=== PATIENT | male | born 1975 | race Caucasian/White ===

== ENCOUNTER 2018-02-21 10:22 | Emergency (ER) | payer OTHER ==
[2018-02-21 10:40] VITALS: BP 153/103
--- NOTE | 2018-02-21 11:19 | UC ---
Truncal Trauma HPI - HPI Summary HPI Summary: fell on a table that tipped over 10 days ago. Pain on right ribcage preventing him from running/exercse. Denies pain with deep inspiration. Pain is 6/10 alleviated partially with ibuprofen. Hurts a lot when sneezing - History Of Current Complaint Chief Complaint: UCBackPain Stated Complaint: RIB PAIN Time Seen by Provider: 02/21/18 11:05 Hx Obtained From: Patient Onset/Duration: Sudden Onset, Lasting Days Onset Of Pain: Immediate Severity Initially: Moderate Severity Currently: Moderate Pain Intensity: 6 Mechanism Of Injury: Blunt Trauma, Fall From Height Of: - 4 feet Aggravating Factor(s): Cough Alleviating factor(s): OTC Medication Associated Signs And Symptoms: Positive: Negative - Allergies/Home Medications Allergies/Adverse Reactions: Allergies Allergy/AdvReac Type Severity Reaction Status Date / Time No Known Allergies Allergy Verified 01/02/16 18:56 Home Medications: Home Medications Omeprazole CAP* [Prilosec CAP* 20 MG] 1 tab PO DAILY 02/21/18 [History Confirmed 02/21/18] PMH/Surg Hx/FS Hx/Imm Hx Previously Healthy: Yes Cardiovascular History: Hypertension - Surgical History Surgical History: Yes Surgery Procedure, Year, and Place: Right thumb Surgery - Social History Alcohol Use: Occasionally Alcohol Amount: 3 beers a week Substance Use Type: None Smoking Status (MU): Never Smoked Tobacco - Immunization History Most Recent Tetanus Shot: UTD Review of Systems Constitutional: Negative Musculoskeletal: Arthralgia, Myalgia All Other Systems Reviewed And Are Negative: Yes Physical Exam Triage Information Reviewed: Yes Appearance: Well-Appearing, No Pain Distress, Well-Nourished Vital Signs: Initial Vital Signs Temp 98.5 F 02/21/18 10:32 Pulse 64 02/21/18 10:32 Resp 18 02/21/18 10:32 BP 153/103 02/21/18 10:32 Pulse Ox 99 02/21/18 10:32 Vital Signs Reviewed: Yes Eyes: Positive: Conjunctiva Clear ENT: Positive: Hearing grossly normal Neck: Positive: Supple Respiratory: Positive: Chest non-tender, Lungs clear, Normal breath sounds, No respiratory distress Cardiovascular: Positive: RRR, No Murmur, Pulses Normal, Brisk Capillary Refill Musculoskeletal Exam: Other - tender on 12th right rib mid axillary line. Resolving hematoma noted on inferior aspect of right abdomen. Truncal Trauma Course/Dx - Course Course Of Treatment: Fracture of 8th9th and 11th rib on right side. Continue pain medication - Differential Dx/Diagnosis Provider Diagnoses: Rib fractures Discharge - Sign-Out/Discharge Documenting (check all that apply): Discharge/Admit/Transfer - Discharge Plan Condition: Good Disposition: HOME Patient Education Materials: Rib Fracture (ED), Hydrocodone/Acetaminophen (By mouth) Referrals: Thelma Avalos MD [Primary Care Provider] - - Billing Disposition and Condition Condition: GOOD Disposition: HOME
--- NOTE | 2018-02-21 11:50 | RAD ---
Indication: Right rib injury. 3 views of the right ribs are reviewed. There is a fracture of the right 11th and ninth and eighth ribs. No significant displacement is noted. IMPRESSION: Fractures of the eighth, ninth and 11th rib. An occult fracture of the right 10th rib is not excluded.
== END 2018-02-21 12:24 | disposition home or self-care (01) ==
LOC: UCEAST 10:22
DX: S22.41XA Multiple fractures of ribs, right side, initial encounter for closed fracture (principal); S27.9XXA Injury of unspecified intrathoracic organ, initial encounter; W18.09XA Striking against other object with subsequent fall, initial encounter; Y93.9 Activity, unspecified; Y92.9 Unspecified place or not applicable; I10 Essential (primary) hypertension
CPT/HCPCS: 99212; G0463